=== PATIENT | male | born 1960 | race Caucasian/White ===

== ENCOUNTER 2016-08-13 12:59 | Emergency (ER) | payer OTHER ==
[2016-08-17] MEDS ORDERED: LEVAQUIN750 MG PO ×2 (09:10→09:14)
[2016-08-17] MEDS ORDERED: TYLENOL EXTRA500 MG PO ×2 (09:13→09:15)
[2016-08-17] MEDS ORDERED: ALBUTEROL HFA6.7 GM IH (09:14)
== END 2016-08-13 17:18 | disposition critical access hospital (66) ==
LOC: ER 12:59
DX: J18.9 Pneumonia, unspecified organism (principal); R09.02 Hypoxemia; F17.210 Nicotine dependence, cigarettes, uncomplicated
CPT/HCPCS: 36415; 87502; 96365; 96375; J1650; Q9967